=== PATIENT | female | born 1975 | race Caucasian/White ===

== ENCOUNTER 2022-05-04 13:52 | Emergency (ER) | payer MEDICAID ==
[2022-05-04 17:14] LABS: BLOOD UREA NITROGEN,BUN 15 mg/dL (7.0-18.0); CARBON DIOXIDE,CO2 25.6 mmol/L (21.0-32.0); CHLORIDE,CL 106 mmol/L (98-107); GLUCOSE RANDOM 91 mg/dL (74-106); LIPASE 171 U/L (73-393); SODIUM,NA 143 mmol/L (136-145)
[2022-05-04 17:16] LABS: ESTIMATED GFR 106 mL/min (>60)
[2022-05-04] MEDS ORDERED: Iopamidol 755 MG/ML 500 ML Multipack Bottle IVPUSH STA (18:39)
== END 2022-05-04 19:00 | disposition home or self-care (01) ==
LOC: MW.ED 13:52
DX: R10.9 Unspecified abdominal pain (principal); E27.9 Disorder of adrenal gland, unspecified; E78.00 Pure hypercholesterolemia, unspecified; E11.9 Type 2 diabetes mellitus without complications; Z79.4 Long term (current) use of insulin; Z79.899 Other long term (current) drug therapy; Z86.16 Personal history of COVID-19
CPT/HCPCS: 36415; 74177; 80053; 81003; 83690; 84703; 85025; 99284; Q9967; 99283